=== PATIENT | male | born 1930 | race Caucasian/White ===

== ENCOUNTER 2018-09-04 16:49 | Emergency (ER) | payer MEDICARE ==
[~2018-09-04] VITALS: Ht 177.8 cm; Wt 95.0 kg
[~2018-09-04 16:49] MED LIST: AGGRENOX 200/251 CAP PO; ANTIVERT12.5 MG PO; ATORVASTATIN CA40 MG PO; FUROSEMIDE20 MG PO; ISOSORB MONO30 MG PO; LOSARTAN POT100 MG PO; METFORMIN HCL500 M1 PO; OMEPRAZOLE20 M2 PO; VITAMIN B-12500 MCG PO
[2018-09-04] MEDS ORDERED: ASPIRIN PO (17:06)
[2018-09-04] MEDS ORDERED: [UNRECOGNIZED DRUG - OTHER] PO (17:06)
[2018-09-04] MEDS ORDERED: B121000 MCG PO (17:07)
[2018-09-04] MEDS ORDERED: LOSARTAN POTASS50 MG PO (17:08)
[2018-09-04] MEDS ORDERED: ISOSORB MONO30 MG PO (17:08)
[2018-09-04] MEDS ORDERED: ATORVASTATIN CA40 MG PO (17:09)
[2018-09-04] MEDS ORDERED: FUROSEMIDE20 MG PO (17:09)
[2018-09-04] MEDS ORDERED: NITROSTAT0.3 MG SL (17:10)
[2018-09-04] MEDS ORDERED: CLEOCIN300 MG PO (18:13)
[2018-09-04 18:19] VITALS: BP 137/83
[2018-09-05] MEDS ORDERED: CLEOCIN300 MG PO (12:50)
== END 2018-09-04 18:30 | disposition home or self-care (01) ==
LOC: ED 16:49
PROC: 0JQH0ZZ Repair Left Lower Arm Subcutaneous Tissue and Fascia, Open Approach (ICD-10-PCS; principal; 2018-09-04)
DX: S51.812A Laceration without foreign body of left forearm, initial encounter (principal); W01.190A Fall on same level from slipping, tripping and stumbling with subsequent striking against furniture, initial encounter; Y93.89 Activity, other specified; Y92.009 Unspecified place in unspecified non-institutional (private) residence as the place of occurrence of the external cause

== ENCOUNTER 2018-09-05 12:19 | Emergency (ER) | payer MEDICARE ==
[~2018-09-05] VITALS: Ht 177.8 cm; Wt 97.7 kg
[~2018-09-05 12:19] MED LIST changes: +ASPIRIN PO; +B121000 MCG PO; +CLEOCIN300 MG PO; +LOSARTAN POTASS50 MG PO; +NITROSTAT0.3 MG SL; +[UNRECOGNIZED DRUG - OTHER] PO
[2018-09-05] MEDS ORDERED: CLEOCIN300 MG PO (12:50)
[2018-09-05 13:10] VITALS: BP 101/48
== END 2018-09-05 13:10 | disposition home or self-care (01) ==
LOC: ED 12:19
DX: S41.102D Unspecified open wound of left upper arm, subsequent encounter (principal); X58.XXXD Exposure to other specified factors, subsequent encounter